=== PATIENT | female | born 1990 | race Caucasian/White ===

== ENCOUNTER 2017-10-07 21:26 | Emergency (ER) | payer SELFPAY ==
[~2017-10-07] VITALS: Ht 167.6 cm; Wt 89.9 kg
[2017-10-07 21:31] VITALS: BP 137/84
[2017-10-07] MEDS ORDERED: HYDROGEN PEROXIDE 3% 240 ML BTL TP ONE (22:55)
[2017-10-08] VITALS: BP 129/78
== END 2017-10-08 | disposition home or self-care (01) ==
LOC: MED 21:26
DX: H61.22 Impacted cerumen, left ear (principal)
CPT/HCPCS: 99283

== ENCOUNTER 2018-03-16 13:30 | Emergency (ER) | payer SELFPAY ==
[~2018-03-16] VITALS: Ht 167.6 cm; Wt 88.9 kg
[2018-03-16 13:50] VITALS: BP 115/75
--- NOTE | 2018-03-16 13:58 | NUR ---
PATIENT PRESENTS TO ED WITH THE CHIEF C/O ABDOMINAL PAIN,DIARRHEA AND VOMITING . PT STATES SYMPTOMS STARTED 2 DAYS AGO. NAUSEATED AT THIS TIME; SKIN IS PINK/WARM/DRY; AAOX4 WITH EVEN AND STEADY GAIT; LUNGS CLEAR BL; HR EVEN AND REGULAR; PT DENIES ANY FEVER, CP, SOB, OR COUGH AT THIS TIME; PATIENT STATES PAIN OF 8/10 AT THIS TIME; VSS; PATIENT POSITIONED FOR COMFORT; HOB ELEVATED; BEDRAILS UP X2; BED DOWN. ER MD MADE AWARE OF PT STATUS.
--- NOTE | 2018-03-16 14:08 | NUR ---
PT AMBULATED TO BATHROOM WITH STEADY GAIT
[2018-03-16] MEDS ORDERED: ONDANSETRON 4 MG ODT PO ONE (14:50)
--- NOTE | 2018-03-16 15:05 | NUR ---
PT DRANK A CUP OF WATER. TOLERATING WELL. NO C/O NAUSA AT THIS TIME. NO VOMITING NOTED.
[2018-03-16 15:29] VITALS: BP 115/71
--- NOTE | 2018-03-16 15:30 | NUR ---
Patient discharged with v/s stable. Written and verbal after care instructions given and explained. Patient alert, oriented and verbalized understanding of instructions. Ambulatory with steady gait. All questions addressed prior to discharge. ID band removed. Patient advised to follow up with PMD. Rx of PEDIALYTE, ZOFRAN AND PEPTO BISMOL given. Patient educated on indication of medication including possible reaction and side effects. Opportunity to ask questions provided and answered.
== END 2018-03-16 15:30 | disposition home or self-care (01) ==
LOC: MED 13:30
DX: R11.2 Nausea with vomiting, unspecified (principal); R19.7 Diarrhea, unspecified
CPT/HCPCS: 81002; 81025; 99283; S0119